=== PATIENT | male | born 1985 | race Hispanic/Latino ===

== ENCOUNTER 2021-09-17 18:43 | Emergency (ER) | payer SELFPAY ==
[~2021-09-17] VITALS: Ht 167.6 cm; Wt 78.0 kg
[2021-09-17] MEDS ORDERED: CIPRO HC OTIC S10 ML RIGHT EAR (19:36)
[2021-09-17] MEDS ORDERED: ACETAMINOPHEN500 MG PO (19:36)
[2021-09-17] MEDS ORDERED: AMOXICILLIN500 MG PO (19:36)
[2021-09-17] MEDS ORDERED: IBUPROFEN IB200 MG PO (19:36)
[2021-09-17 19:47] VITALS: BP 111/74
== END 2021-09-17 19:47 | disposition home or self-care (01) ==
LOC: EDBD 18:43 → FSED 19:22
DX: H60.91 Unspecified otitis externa, right ear (principal); J06.9 Acute upper respiratory infection, unspecified
CPT/HCPCS: 99282